=== PATIENT | female | born 1950 | race Caucasian/White ===

== ENCOUNTER → 2017-02-19 | Day surgery (SDC) | payer BC ==
[2017-01-30 10:44] VITALS: Ht 165.1 cm; Wt 89.1 kg
[~2017-02-19] VITALS: Ht 165.1 cm; Wt 89.1 kg
[~2017-02-19] MED LIST: ACET1TAB84 PO; ALBU1AER9 INH; AMLO-114 PO; APIX1TAB3 PO; ASPCH81 PO; ASPI-390 PO; CHOL100010 PO; DIPH25CA65 PO; IRBE-39 PO; LIDOCAINE HCL 1% MPF 5 ML VIAL ONE; LXP/20 PO; METH10TA6 PO; MGN PO; MULT-506 PO; OMEG10007 PO; PSYL55.43 PO; SIMV40TA2 PO; SODIUM CHLORIDE 0.9% INJ 10 ML VIAL ONE; TRAM-10 PO
--- NOTE | 2017-02-19 13:28 | History & Physical Bridge - [place] ---
H&P Re-Evaluation Bridge Note: I have examined the patient, reviewed the History & Physical and in the interval since the performance of the History & Physical I have noted the following changes of clinical significance: No changes noted
[2017-02-19 13:50] VITALS: TEMP 36.7
--- NOTE | 2017-02-19 13:52 | Discharge Instructions ---
Discharge Instructions Date of Service February 19, 2017. Visit Reason for Visit: Lumbar Radiculopathy Discharge Discharge Diagnosis / Problem: leg pain Discharge Goals Goal(s): Decrease discomfort, Improve function Activity Recommendations Activity Limitations: resume your previous activity Anesthesia . Post Anesthesia Instructions: If you have had General Anesthesia or IV Sedation: * Do not drive today. * Resume driving when surgeon permits. * Do not make important decisions or sign legal documents today. * Call surgeon for: 1. Temperature elevations greater than 101 degrees F. 2. Uncontrollable pain. 3. Excessive bleeding. 4. Persistent nausea and vomiting. 5. Medication intolerance (nausea, vomiting or rash). * For nausea and vomiting use only clear liquids such as: tea, soda, bouillon until nausea subsides, then gradually increase diet as tolerated. * If you have any concerns or questions, call your surgeon's office. If physician is unavailable and it is an emergency, call 911 or go to the nearest emergency room. . Diet Recommendations Recommended Home Diet: resume previous diet Procedures Procedures Performed: Caudal Epidural Steroid Injection Pending Studies Studies pending at discharge: no Medical Emergencies . Who to Call and When: Medical Emergencies: If at any time you feel your situation is an emergency, please call 911 immediately. . Non-Emergent Contact Non-Emergency issues call your: Specialist . . "Provider Documentation" section prepared by Kendall Adame. .
[2017-02-19 14:01] VITALS: BP 143/77; PULSE 70; O2SAT 96
--- NOTE | 2017-02-19 15:15 | OPERATIVE REPORT ---
DATE OF OPERATION: 02/19/2017 PREOPERATIVE DIAGNOSIS: Lumbar spinal stenosis with history of a bilateral left greater than right radiculopathy and prior lumbar surgery. POSTOPERATIVE DIAGNOSIS: Same. INDICATIONS: The patient is a 66-year-old white female who has had prior back surgery with persistent radicular pain. She has responded favorably to caudal epidural injection done 7 months ago with good relief of radicular pain; however, has returned and is problematic to her. She presents today for a caudal epidural steroid injection to provide her with relief of radicular complaints. PHYSICAL EXAMINATION: Pleasant female seated comfortably. Point tenderness to palpation on the left side, positive straight leg raise on the left lower extremity, decreased subjective sensation in the L4 dermatomal distribution. CONSENT: Verbal and written consent was obtained from the patient. Risks and benefits were reviewed. Risks include but are not limited to epidural abscess, epidural hematoma, allergic reaction. The patient wishes to proceed. PROCEDURE: The patient was taken back to the special procedures room of the [facility] where she was maintained in a prone position. Backside was cleansed with Betadine x3 and a dry sterile dressing was applied. Fluoroscope was used to identify the sacral hiatus and the overlying skin was anesthetized with 5 mL of lidocaine 1% with a 25 gauge 1.5-inch needle. A 25 gauge 3.5 inch spinal needle was then directed under lateral fluoroscopic guidance into the canal. She then underwent injection after negative aspiration of 4 mL of preservative free sodium chloride and 40 mg of Depo-Medrol. Injection was well tolerated. DISPOSITION: 1. The patient is taken out into the discharge recovery area where she will be discharged home once discharge criteria have been met. 2. Follow up in the [facility] office in 2-4 weeks. I attest to the content of the Intraoperative Record and any orders documented therein. Any exceptio ns are noted below.
== END | disposition home or self-care (01) ==
LOC: X.SURG 12:43
PROVIDERS: ATTEND Physical Medicine & Rehabilitation
DX: M48.06 Spinal stenosis, lumbar region (principal); M54.16 Radiculopathy, lumbar region; E05.90 Thyrotoxicosis, unspecified without thyrotoxic crisis or storm

== ENCOUNTER → 2017-02-19 | Outpatient (CLI) | payer BC ==
[~2017-02-19] MED LIST changes: -LIDOCAINE HCL 1% MPF 5 ML VIAL ONE; -SODIUM CHLORIDE 0.9% INJ 10 ML VIAL ONE
[2017-02-19 16:08] LABS: THYROID STIMULATING HORMONE 0.76 uIu/ml (0.300-4.500)
== END | disposition home or self-care (01) ==
LOC: C.LAB1850 14:14
PROVIDERS: ATTEND Physician Assistant
DX: E05.90 Thyrotoxicosis, unspecified without thyrotoxic crisis or storm (principal)

== ENCOUNTER → 2017-04-02 | Day surgery (SDC) | payer BC ==
[2017-03-28 11:22] VITALS: Ht 165.1 cm; Wt 89.1 kg
[~2017-04-02] VITALS: Ht 165.1 cm; Wt 89.1 kg
[~2017-04-02] MED LIST changes: +BUPIVACAINE 0.25% 2.5MG/ML PF 10 ML VIAL ONE; +IOPAMIDOL INJ 61% 15 ML VIAL ONE; +LIDOCAINE HCL 1% MPF 5 ML VIAL ONE; +SODIUM CHLORIDE 0.9% INJ 10 ML VIAL ONE; -TRAM-10 PO
[2017-04-02 14:38] VITALS: TEMP 37.2
--- NOTE | 2017-04-02 16:02 | Discharge Instructions ---
Discharge Instructions Date of Service Apr 02, 2017. Visit Reason for Visit: Sacroiliitis Discharge Discharge Diagnosis / Problem: left sacroilitis Discharge Goals Goal(s): Decrease discomfort, Improve function Activity Recommendations Activity Limitations: resume your previous activity Anesthesia . Post Anesthesia Instructions: If you have had General Anesthesia or IV Sedation: * Do not drive today. * Resume driving when surgeon permits. * Do not make important decisions or sign legal documents today. * Call surgeon for: 1. Temperature elevations greater than 101 degrees F. 2. Uncontrollable pain. 3. Excessive bleeding. 4. Persistent nausea and vomiting. 5. Medication intolerance (nausea, vomiting or rash). * For nausea and vomiting use only clear liquids such as: tea, soda, bouillon until nausea subsides, then gradually increase diet as tolerated. * If you have any concerns or questions, call your surgeon's office. If physician is unavailable and it is an emergency, call 911 or go to the nearest emergency room. . Diet Recommendations Recommended Home Diet: resume previous diet Procedures Procedures Performed: Left Sacroiliac Steroid Injection Pending Studies Studies pending at discharge: no Medical Emergencies . Who to Call and When: Medical Emergencies: If at any time you feel your situation is an emergency, please call 911 immediately. . Non-Emergent Contact Non-Emergency issues call your: Specialist . . "Provider Documentation" section prepared by Kendall Adame. .
[2017-04-02 16:06] VITALS: BP 131/72; PULSE 71; O2SAT 96
--- NOTE | 2017-04-02 16:29 | [facility] Operative Report ---
Operative Report Date of Service Apr 02, 2017. Operative Report DICTATED BY: Kendall Adame M.D. DATE OF SURGERY: 04/02/17. DATE OF OPERATION: 04/02/2017. PREOPERATIVE DIAGNOSIS: Left sacroiliitis, history of fusion. POSTOPERATIVE DIAGNOSIS: Same. PROCEDURE: Left SI joint injection under fluoroscopic guidance. SURGEON: Dr. Kendall Adame. INDICATIONS: The patient is a 66-year-old white female who last underwent bilateral SI joint injections in August in which she had 50% improvement. She has had some increasing pain over the last month and presents today for left SI joint injection to provide her with relief. PHYSICAL EXAMINATION: Pleasant female seated comfortably. She has point tenderness to palpation over her SI joints bilaterally. Sciatic notches are nontender, slight increase with extension. No problems with flexion. She has normal lower extremity strength. Positive modified Samantha maneuver. Negative seated straight leg raises. CONSENT: Verbal and written consent was obtained from the patient. Risks and benefits were reviewed. Risks include but are not limited to abscess and allergic reaction. She wishes to proceed. PROCEDURE: The patient was taken back to the special procedures room of [facility]. She was maintained in a prone position. Backside was cleansed with Betadine x3 and a dry sterile dressing was applied. Fluoroscope was used to identify the left SI joint. The overlying skin was anesthetized with 2 mL of lidocaine 1% with a 25 gauge 1.5-inch needle. A 25 gauge 3.5 inch spinal needle was then directed into the joint. There was a give as it entered the joint. Isovue-300 contrast 0.25 mL was injected in which demonstrated intraarticular uptake pattern. She then underwent injection after negative aspiration of 40 mg of Depo-Medrol and 1.5 mL of bupivacaine 0.25%. DISPOSITION: 1. The patient is taken out into the discharge recovery area where she will be discharged home once discharge criteria have been met. 2. Follow up in the [facility] office in 2-4 weeks. I attest to the content of the Intraoperative Record and any orders documented therein. Any exceptions are noted below. I attest to the content of the Intraoperative Record and any orders documented therein. Any exceptions are noted below.
== END | disposition home or self-care (01) ==
LOC: X.SURG 14:21
PROVIDERS: ATTEND Physical Medicine & Rehabilitation
DX: M46.1 Sacroiliitis, not elsewhere classified (principal); M54.16 Radiculopathy, lumbar region; Z98.1 Arthrodesis status

== ENCOUNTER → 2017-05-01 | Outpatient (CLI) | payer BC ==
[~2017-05-01] MED LIST changes: -BUPIVACAINE 0.25% 2.5MG/ML PF 10 ML VIAL ONE; -IOPAMIDOL INJ 61% 15 ML VIAL ONE; -LIDOCAINE HCL 1% MPF 5 ML VIAL ONE; -SODIUM CHLORIDE 0.9% INJ 10 ML VIAL ONE
[2017-05-01 17:16] LABS: ALT/SGPT 25 U/L (12-78); BLOOD UREA NITROGEN 12 mg/dl (7-18); BUN/CREATININE RATIO 16.7 (10-20); CALCIUM 9.7 mg/dl (8.5-10.1); CARBON DIOXIDE 29 mmol/L (21-32); CHLORIDE 105 mmol/L (98-107); CREATININE 0.72 mg/dl (0.60-1.20); GLUCOSE 81 mg/dl (70-99); POTASSIUM 3.8 mmol/L (3.5-5.1); SODIUM 140 mmol/L (136-145)
[2017-05-01 17:19] LABS: ALB/GLOB RATIO 1.1 (0.9-2); ALKALINE PHOSPHATASE 68 U/L (45-117); AST/SGOT 16 U/L (15-37); CHOLESTEROL 229 mg/dl (0-200); CHOLESTEROL/HDL RATIO 2.9; HDL CHOLESTEROL 80 mg/dl; LDL CHOLESTEROL CALCULATED 106 mg/dl; TRIGLYCERIDES 217 mg/dl (0-150); VERY LOW DENSITY LIPOPROT CALC 43 mg/dl
[2017-05-01 17:24] LABS: THYROID STIMULATING HORMONE 1.62 uIu/ml (0.300-4.500)
== END | disposition home or self-care (01) ==
LOC: C.LAB1850 15:42
PROVIDERS: ATTEND Physician Assistant
DX: E78.5 Hyperlipidemia, unspecified (principal); E55.9 Vitamin D deficiency, unspecified; E05.90 Thyrotoxicosis, unspecified without thyrotoxic crisis or storm

== ENCOUNTER → 2017-08-13 | Outpatient (CLI) | payer BC ==
--- NOTE | 2017-08-15 08:12 | MAMMOGRAPHY REPORT ---
BILATERAL DIGITAL SCREENING MAMMOGRAM TOMOSYNTHESIS WITH CAD: 08/13/2017 CLINICAL HISTORY: Patient scheduled for annual screening mammography. During her appointment she repo rted a new lump in the left upper outer quadrant. TECHNIQUE: Bilateral breast tomosynthesis in addition to standard 2D mammography was performed. Curre nt study was also evaluated with a Computer Aided Detection (CAD) system. COMPARISON: Comparison is made to exams dated: 08/07/2016 mammogram, 08/04/2015 mammogram, 4 mammogram, 07/28/2013 mammogram, 07/27/2012 mammogram, and 07/26/2011 mammogram - [facility]. BREAST COMPOSITION: There are scattered areas of fibroglandular density in both breasts. FINDINGS: A triangular skin palpable marker was placed on the skin of the the left upper outer quadr ant, denoting the area of palpable mass pointed out by the patient. There is no evidence of a new suspicious mass, asymmetry, area of distortion or cluster of microcalci fications bilaterally, with particular attention to the area of palpable concern in the left upper ou ter quadrant. However, standard of care for any new palpable finding is mammography plus ultrasound and therefore additional targeted ultrasound is recommended in the left breast. There are scattered stable benign-appearing coarse calcifications bilaterally. IMPRESSION: ACR BI-RADS CATEGORY 0: INCOMPLETE EVALUATION: NEED ADDITIONAL IMAGING EVALUATION Stable bilateral mammograms, without definite mammographic evidence of malignancy. However, the debby ent reports a new palpable lump in the left upper outer quadrant, for which additional targeted ultra sound is recommended. The patient will be called to schedule an appointment. Approximately 10% of breast cancers are not detected with mammography. A negative mammographic report should not delay biopsy if a clinically suggestive mass is present. Shobha Castro M.D. ay/:08/13/2017 16:06:28 Certified Orthotic Fitter: Luci Dueñas, [facility] letter sent: Addl Imaging 0 BI-RADS Code: ACR BI-RADS Category 0: Incomplete Evaluation: Need Additional Imaging Evaluation
== END | disposition home or self-care (01) ==
LOC: C.MAMM 15:04
PROVIDERS: ATTEND Nurse Practitioner Family
DX: Z12.31 Encounter for screening mammogram for malignant neoplasm of breast (principal)

== ENCOUNTER → 2017-08-29 | Outpatient (CLI) | payer BC ==
[~2017-08-29] MED LIST changes: +ALBU18002 INH; +ASPI81TA28 PO; +CHOL1000 PO; +MAGN400T6 PO; +PSYL48.59 PO
--- NOTE | 2017-09-01 07:49 | MAMMOGRAPHY REPORT ---
ULTRASOUND OF LEFT BREAST: 08/29/2017 CLINICAL HISTORY: The patient reported a lumpy region in her left breast at the time of her screening mammogram. Further evaluation with ultrasound was recommended. COMPARISON: Comparison is made to exams dated: 08/13/2017 mammogram, 08/07/2016 mammogram, 5 mammogram, 08/03/2014 mammogram, 07/28/2013 mammogram, and 07/27/2012 mammogram - [facility]. TECHNIQUE: Real-time targeted ultrasound was performed of the left breast. FINDINGS: Real-time, high resolution targeted ultrasound was performed of the lumpy region in the le ft breast pointed out by the patient. She could not pinpoint the exact location of the lumps but poi nted to the general region in the left upper outer quadrant. Sonographically normal tissue is seen i n this region, without evidence of a mass or other suspicious sonographic abnormality. IMPRESSION: ACR BI-RADS CATEGORY 1: NEGATIVE No suspicious sonographic abnormality at the site of the lumpiness in the left breast pointed out by the patient. There is no sonographic evidence of malignancy. Recommend clinical follow-up for the p alpable findings, and recommend routine bilateral screening mammograms in one year. The patient was verbally notified of the results. Mellissa Fontanez M.D. /:08/29/2017 14:15:16 Weapons Designer: Luci ESPOSITO(R)(M), [facility] letter sent: Normal 1/2 BI-RADS Code: ACR BI-RADS Category 1: Negative
== END | disposition home or self-care (01) ==
LOC: C.MAMM 13:58
PROVIDERS: ATTEND Internal Medicine
DX: N63.20 Unspecified lump in the left breast, unspecified quadrant (principal)

== ENCOUNTER → 2017-09-25 | Day surgery (SDC) | payer BC ==
[2017-09-02 11:48] VITALS: Ht 165.1 cm; Wt 90.9 kg
[~2017-09-25] VITALS: Ht 165.1 cm; Wt 90.9 kg
[~2017-09-25] MED LIST changes: -ALBU1AER9 INH; -ASPCH81 PO; -ASPI-390 PO; +BUPIVACAINE 0.25% 2.5MG/ML PF 10 ML VIAL ONE; -CHOL100010 PO; +IOPAMIDOL INJ 61% 15 ML VIAL ONE; +LIDOCAINE HCL 1% MPF 5 ML VIAL ONE; -MGN PO; -PSYL55.43 PO
[2017-09-25 15:09] VITALS: BP 125/80; PULSE 77; TEMP 37; O2SAT 95
--- NOTE | 2017-09-25 15:13 | Discharge Instructions ---
Discharge Instructions Date of Service Sep 25, 2017. Visit Reason for Visit: Sacroiliitis Discharge Discharge Diagnosis / Problem: low back pain Discharge Goals Goal(s): Decrease discomfort, Improve function Activity Recommendations Activity Limitations: resume your previous activity Anesthesia . Post Anesthesia Instructions: If you have had General Anesthesia or IV Sedation: * Do not drive today. * Resume driving when surgeon permits. * Do not make important decisions or sign legal documents today. * Call surgeon for: 1. Temperature elevations greater than 101 degrees F. 2. Uncontrollable pain. 3. Excessive bleeding. 4. Persistent nausea and vomiting. 5. Medication intolerance (nausea, vomiting or rash). * For nausea and vomiting use only clear liquids such as: tea, soda, bouillon until nausea subsides, then gradually increase diet as tolerated. * If you have any concerns or questions, call your surgeon's office. If physician is unavailable and it is an emergency, call 911 or go to the nearest emergency room. . Diet Recommendations Recommended Home Diet: resume previous diet Procedures Procedures Performed: Left Sacroiliac Joint Injection Pending Studies Studies pending at discharge: no Medical Emergencies . Who to Call and When: Medical Emergencies: If at any time you feel your situation is an emergency, please call 911 immediately. . Non-Emergent Contact Non-Emergency issues call your: Specialist . . "Provider Documentation" section prepared by Kendall Adame. .
--- NOTE | 2017-09-25 15:49 | OPERATIVE REPORT ---
DATE OF OPERATION: 09/25/2017 PREOPERATIVE DIAGNOSIS: Left sacroiliitis. POSTOPERATIVE DIAGNOSIS: Same. PROCEDURE: Left sacroiliac joint injection under fluoroscopic guidance. SURGEON: Dr. Kendall Adame. INDICATIONS: The patient is a 67-year-old white female who presents today for a left SI joint injection for chronic sacroiliac pain. The last injection she received was in the third week of March. Pain has been returning since that time as she responds very favorably to the injections. She presents today for an injection to provide her with relief. PHYSICAL EXAMINATION: Pleasant female seated comfortably. She has some point tenderness to palpation of the left SI joint, worse with extension. She has normal lower extremity strength. Negative seated straight leg raises. CONSENT: Verbal and written consent was obtained from the patient. Risks and benefits were reviewed. Risks include but are not limited to abscess and allergic reaction. The patient wishes to proceed. PROCEDURE: The patient was taken back in the special procedures room of the [facility] where she was maintained in a prone position. Backside was cleansed with Betadine x3 and a dry sterile dressing was applied. Fluoroscope was used to identify the left SI joint. The overlying skin was anesthetized with 2.5 mL of lidocaine 1% with a 25 gauge 1.5-inch needle. A 25 gauge 3.5 inch needle was then used to enter the joint. Isovue-300 contrast 0.25 mL was injected in which showed intra-articular placement. She then underwent injection after negative aspiration of 40 mg of Depo-Medrol and 1.5 mL of bupivacaine 0.25%. Injection was well tolerated. DISPOSITION: 1. The patient is taken out into the discharge recovery area where she will be discharged home once discharge criteria have been met. 2. Follow up in the [facility] office in 4 weeks' time. I attest to the content of the Intraoperative Record and any orders documented therein. Any exception s are noted below.
== END | disposition home or self-care (01) ==
LOC: X.SURG 14:15
PROVIDERS: ATTEND Physical Medicine & Rehabilitation
DX: M46.1 Sacroiliitis, not elsewhere classified (principal)

== ENCOUNTER → 2017-10-20 | Outpatient (CLI) | payer BC ==
[~2017-10-20] MED LIST changes: -BUPIVACAINE 0.25% 2.5MG/ML PF 10 ML VIAL ONE; -IOPAMIDOL INJ 61% 15 ML VIAL ONE; -LIDOCAINE HCL 1% MPF 5 ML VIAL ONE
[2017-10-20 17:35] LABS: ALBUMIN 3.9 gm/dl (3.4-5.0); ALT/SGPT 25 U/L (12-78); BLOOD UREA NITROGEN 11 mg/dl (7-18); CALCIUM 9.7 mg/dl (8.5-10.1); CARBON DIOXIDE 28 mmol/L (21-32); CREATININE 0.64 mg/dl (0.60-1.20); GLUCOSE 85 mg/dl (70-99); POTASSIUM 4.3 mmol/L (3.5-5.1); SODIUM 138 mmol/L (136-145)
[2017-10-20 17:45] LABS: ALKALINE PHOSPHATASE 66 U/L (45-117); AST/SGOT 16 U/L (15-37); TOTAL PROTEIN 7.4 gm/dl (6.4-8.2)
== END | disposition home or self-care (01) ==
LOC: C.LAB1850 16:16
PROVIDERS: ATTEND Internal Medicine
DX: E05.90 Thyrotoxicosis, unspecified without thyrotoxic crisis or storm (principal); I10 Essential (primary) hypertension

== ENCOUNTER → 2018-01-28 | Day surgery (SDC) | payer BC ==
[2018-01-16 15:34] VITALS: Ht 165.1 cm; Wt 90.9 kg
[~2018-01-28] VITALS: Ht 165.1 cm; Wt 90.9 kg
[~2018-01-28] MED LIST changes: -ASPI81TA28 PO; +LACTATED RINGER'S 1000ML 1,000 ML IV SCH; +LIDOCAINE HCL 1% 20 ML VIAL ONE
== END | disposition home or self-care (01) ==
LOC: X.SURG 09:08
PROVIDERS: ATTEND Physical Medicine & Rehabilitation
DX: M46.1 Sacroiliitis, not elsewhere classified (principal); M40.50 Lordosis, unspecified, site unspecified

== ENCOUNTER → 2018-04-29 | Day surgery (SDC) | payer BC ==
[2018-04-28 11:18] VITALS: Ht 165.1 cm; Wt 86.4 kg
[~2018-04-29] VITALS: Ht 165.1 cm; Wt 86.4 kg
[~2018-04-29] MED LIST changes: -AMLO-114 PO; +AMLO10TA3 PO; +ATROPINE SULFATE 0.1 MG/ML 5ML SYR IV PRN; +EpHEDrine SULFATE INJ 50 MG/ML AMP IV PRN; +FENTANYL CITRATE INJ 50 MCG/1 ML 2 ML VIAL IV PRN; +FENTANYL CITRATE INJ 50 MCG/1 ML 2 ML VIAL ONE; +LIDOCAINE HCL 2% 2 ML VIAL (20MG/ML) ONE; +MIDAZOLAM HCL 1 MG/ML 2ML VIAL ONE; +ONDANSETRON INJ 2 MG/ML 2 ML VIAL IV PRN; +ONDANSETRON INJ 2 MG/ML 2 ML VIAL ONE; +PHENYLEPHRINE HCL INJ 10 MG/ML VIAL ONE; +PROPOFOL IV EMULSION 10 MG/ML 20 ML VIAL ONE
--- NOTE | 2018-04-29 08:01 | History and Physical: Surg Cnt ---
History & Physical Date Apr 29, 2018. Chief Complaint Low back pain History of Present Illness Patient is a 67 year old white female who responds favorably to SI joint injections. She presents today for a left SI joint denervation to provide longer lasting pain relief. Additional History Hepatic Disease: No Endocrine Disorder: No Kidney Disease: No Hypertension: Yes Heart Disease: No Bleeding Tendencies: Yes Allergies Coded Allergies: No Known Allergies (Unverified , NONE, 04/29/18) Home Medications Scheduled Amlodipine (Norvasc), 10 MG PO QPM Apixaban (Eliquis), 1 TAB PO HS Cholecalciferol (Vitamin D3), 3 TABS PO QAM Escitalopram Oxalate (Escitalopram Oxalate), 1 TAB PO QAM Fish Oil ([place]-3), 1 CAP PO QAM Irbesartan (Avapro), 1 TAB PO HS Magnesium Oxide (Mag-Ox), 400 MG PO QAM Methimazole (Methimazole), 10 MG PO QAM Multivitamin (Multivitamin), 1 TAB PO QAM Simvastatin (Zocor), 40 MG PO HS Scheduled PRN Acetaminophen (Tylenol Arthritis Ext Rel), 2 TABS PO Q8H PRN for Pain Albuterol Sulfate (Proair Respiclick), 2 PUFFS INH Q4H PRN for SOB/Wheezing Diphenhydramine Hcl (Benadryl Allergy), 1 CAP PO Q4-6H PRN for ALLERGIES Psyllium (Metamucil), 1 DOSE PO DAILY PRN for Constipation Social History Smoking Status: Current Every Day Smoker Diagnosis Left sacroilitis ASA Classification: ASA Class II Operation Left sacroilitis
--- NOTE | 2018-04-29 09:06 | [facility] Post Operative Brief Note ---
Immediate Operative Summary Operative Date Apr 29, 2018. Pre-Operative Diagnosis Sacroilliitis, Lordosis Lumbar Region Post-Operative Diagnosis same Procedure(s) Performed Left Sacroiliac Cooled Radio Frequency Joint Denervation Surgeon Dr. Dominique Adame [place] Machinist Surgeon(s) 0 Estimated Blood Loss 0 Findings Consistent with Post-Op Diagnosis Specimens none Anesthesia Type MAC Complication(s) none Disposition Disposition:
--- NOTE | 2018-04-29 09:07 | Discharge Instructions ---
Discharge Instructions Date of Service Apr 29, 2018. Visit Reason for Visit: Sacroiliitis, Lordosis Lumbar Region Discharge Discharge Diagnosis / Problem: low back pain Discharge Goals Goal(s): Decrease discomfort, Improve function Activity Recommendations Activity Limitations: resume your previous activity Anesthesia . Post Anesthesia Instructions: If you have had General Anesthesia or IV Sedation: * Do not drive today. * Resume driving when surgeon permits. * Do not make important decisions or sign legal documents today. * Call surgeon for: 1. Temperature elevations greater than 101 degrees F. 2. Uncontrollable pain. 3. Excessive bleeding. 4. Persistent nausea and vomiting. 5. Medication intolerance (nausea, vomiting or rash). * For nausea and vomiting use only clear liquids such as: tea, soda, bouillon until nausea subsides, then gradually increase diet as tolerated. * If you have any concerns or questions, call your surgeon's office. If physician is unavailable and it is an emergency, call 911 or go to the nearest emergency room. . Diet Recommendations Recommended Home Diet: resume previous diet Procedures Procedures Performed: Left Sacroiliac Cooled Radio Frequency Joint Denervation Pending Studies Studies pending at discharge: no Medical Emergencies . Who to Call and When: Medical Emergencies: If at any time you feel your situation is an emergency, please call 911 immediately. . Non-Emergent Contact Non-Emergency issues call your: Specialist . . "Provider Documentation" section prepared by Kendall Adame. .
[2018-04-29 09:12] VITALS: TEMP 36.5
--- NOTE | 2018-04-29 09:33 | Anesthesia Progress Nt - [facility] ---
Anesthesia Post Op Note Date & Time Apr 29, 2018 at 09:34 Vital Signs Pain Intensity: 0 Vital Signs Past 12 Hours Date Time Temp Pulse Resp B/P (MAP) Pulse Ox O2 Delivery O2 Flow Rate FiO2 04/29/18 09:12 36.5 68 14 96/59 (71) 96 Room Air 04/29/18 07:37 36.8 72 20 142/82 (102) 96 Room Air Notes Mental Status: alert / awake / arousable, participated in evaluation Pt Amnestic to Procedure: Yes Nausea / Vomiting: adequately controlled Pain: adequately controlled Airway Patency, RR, SpO2: stable & adequate BP & HR: stable & adequate Hydration State: stable & adequate Anesthetic Complications: no major complications apparent
[2018-04-29 09:35] VITALS: BP 126/73; PULSE 70; O2SAT 96
--- NOTE | 2018-04-29 10:24 | OPERATIVE REPORT ---
DATE OF OPERATION: 04/29/2018 PREOPERATIVE DIAGNOSIS: Left sacroiliitis, underlying scoliosis. POSTOPERATIVE DIAGNOSIS: Left sacroiliitis, underlying scoliosis. PROCEDURE: Left cooled radiofrequency denervation under conscious sedation. HISTORY OF PRESENT ILLNESS: The patient is a 67-year-old white female who has done well with SI joint injections in the past; however, they do not provide more than 2-3 months of solid relief. Decision is made to do a denervation to provide her closer to 10 months to a year of relief. PHYSICAL EXAMINATION: She is with point tenderness to palpation of left SI joint, worse with twisting and extension. No focal weakness. Negative seated straight leg raises. Positive modified Samantha maneuver. CONSENT: Verbal and written consent was obtained from the patient. Risks and benefits were reviewed. Risks include, but are not limited to abscess, allergic reaction, and nerve denervation. She wishes to proceed. PROCEDURE IN DETAIL: The patient was taken back to OR #1. She was under conscious sedation. The backside was cleansed with Betadine x3 and a dry sterile dressing was placed. She was anesthetized in the overlying sacral area on the left side with 5 mL of Lidocaine 1% and the denervation needle was placed contacting 8 separate spots, left sacral ala, left superior lateral S1 foraminal area, the left S1 lateral foraminal area, the left inferior lateral S1 foraminal area, the superior lateral S2 foraminal area, the lateral S2 foraminal area, the inferior lateral S2 area, and the superior lateral S3 area. All underwent denervation 2 minutes and 30 seconds, well tolerated. DISPOSITION: She is taken out into the discharge recovery area where she will be discharged home once discharge criteria have been met. I attest to the content of the Intraoperative Record and any orders documented therein. Any exception s are noted below.
== END | disposition home or self-care (01) ==
LOC: X.SURG 07:09
PROVIDERS: ATTEND Physical Medicine & Rehabilitation
DX: M46.1 Sacroiliitis, not elsewhere classified (principal); M41.9 Scoliosis, unspecified; I10 Essential (primary) hypertension; J45.909 Unspecified asthma, uncomplicated; J44.9 Chronic obstructive pulmonary disease, unspecified; I48.91 Unspecified atrial fibrillation; Z79.899 Other long term (current) drug therapy; Z79.01 Long term (current) use of anticoagulants; F17.200 Nicotine dependence, unspecified, uncomplicated; M19.90 Unspecified osteoarthritis, unspecified site

== ENCOUNTER 2019-04-15 12:54 | Observation (INO) ==
[2019-04-15] MEDS ORDERED: ASPIRIN CHEW 324 MG PO STA (13:30)
[2019-04-15 13:40] LABS: Basophils # (auto) 0.04 K/uL (0-0.2); Basophils % (auto) 0.5 %; Eosinophils # (auto) 0.31 K/uL (0-0.5); Eosinophils % (auto) 3.9 %; Hematocrit (blood only) 41.6 % (37-47); Hemoglobin 14.2 g/dL (12.0-16.0); Immature Granulocytes # (auto) 0.01 K/uL (0.00-0.02); Immature Granulocytes % (auto) 0.1 %; Lymphocytes # (auto) 3.12 K/uL (1.2-3.4); Mean Corpuscular Hgb Conc 34.1 g/dL (32-36); Mean Corpuscular Volume 91.2 fL (80-100); Mean Platelet Volume 9.3 fL (7.4-10.4); Monocytes # (auto) 0.89 K/uL (0.11-0.59); Monocytes % (auto) 11.1 %; Neutrophils # (auto) 3.63 K/uL (1.4-6.5); Neutrophils % (auto) 45.4 %; Platelet Count 262 K/uL (130-400); RDW Coefficient of Variation 13.4 % (11.5-14.5); RDW Standard Deviation 44.3 fL (36.4-46.3); Red Blood Count 4.56 M/uL (4.2-5.4)
[2019-04-15 13:47] LABS: Alanine Aminotransferase 21 U/L (12-78); Albumin Level 3.9 gm/dl (3.4-5.0); Aspartate Aminotransferase 15 U/L (15-37); BUN Creatinine Ratio 11.4 (10-20); Bilirubin Direct 0.1 mg/dl (0-0.2); Blood Urea Nitrogen 7 mg/dl (7-18); Calcium 8.9 mg/dl (8.5-10.1); Carbon Dioxide 28 mmol/L (21-32); Chloride 106 mmol/L (98-107); Creatinine Clr Calc Pharmacy 87.7 ml/min; Est GFR (African American) 105.3; Est GFR (Non-African American) 90.9; Glucose 86 mg/dl (70-99); Potassium 3.8 mmol/L (3.5-5.1); Sodium 139 mmol/L (136-145)
[2019-04-15 13:52] LABS: Alkaline Phosphatase 79 U/L (45-117); Bilirubin,Total 0.6 mg/dl (0.2-1); Troponin I < 0.015 ng/ml (0-0.045)
--- NOTE | 2019-04-15 14:12 | XRay Report ---
XR chest 2V routine CLINICAL HISTORY: Chest Pain pain COMPARISON STUDY: 08/18/2014 FINDINGS: The bones soft tissues and hemidiaphragms are normal. The cardiomediastinal silhouette is n ormal. The lungs are clear. The pulmonary vasculature is normal. IMPRESSION: Negative chest. The above report was generated using voice recognition software. It may contain grammatical, syntax or spelling errors. Electronically signed by: Peyman Orozco M.D. 04/15/2019 2:11 PM
[2019-04-15] MEDS ORDERED: NITROGLYCERIN SL 0.4 MG/TAB TAB SL PRN ×2 (14:18→15:47)
--- NOTE | 2019-04-15 14:47 | History & Physical Report ---
Date of Service April 15, 2019 Assessment & Plan (1) Chest pain: And shortness of breath at rest and with exertion. Some atypical features, some typical. Continue aspirin therapy. Observation with telemetry. Serial troponins and EKGs. Cardiac echo. Cardiology consultation Present on Admission?: Yes (2) Atrial fibrillation: Paroxysmal. Currently in normal sinus rhythm. Continue Eliquis therapy Present on Admission?: Yes (3) Hypertension: Treated with ARB and amlodipine Present on Admission?: Yes (4) Hyperlipidemia: Continue statin therapy. Check lipid profile Present on Admission?: Yes (5) DVT prophylaxis: On Eliquis History of Present Illness Chief Complaint: Chest pain at rest Primary Care Provider: Camilla Eaton MD 68-year-old female with a history of paroxysmal atrial fibrillation on Eliquis. She has no history of ischemic cardiomyopathy. She has developed chest discomfort and shortness of breath while at rest that radiates to the left arm associated with diaphoresis and shortness of breath. However, she describes the pain as more sharp than dull in nature and seems to actually improve with deep inspiration. It is not palpable. She denies palpitations. She came to the ED today for evaluation and was given sublingual nitroglycerin in route by EMS with resolution of her symptoms. She currently is pain-free. Initial EKG reveals normal sinus rhythm with PACs and nonspecific ST segment changes. Initial troponin is normal. Chest x-ray is clear. She is placed in observation status for further evaluation. She has been given aspirin which will continue. Allergies Allergy/AdvReac Type Severity Reaction Status Date / Time No Known Allergies Allergy Unknown NONE Unverified 04/15/19 13:38 Home Medications Home Medications Medication Instructions Recorded Confirmed Type amlodipine [Norvasc] 10 mg PO QAM #0 10/06/09 04/15/19 History simvastatin [Zocor] 40 mg PO HS #0 10/06/09 04/15/19 History escitalopram oxalate 20 mg PO QAM #0 04/14/15 04/15/19 History irbesartan [Avapro] 300 mg PO PM #0 04/14/15 04/15/19 History methimazole 10 mg PO QAM #0 04/14/15 04/15/19 History multivitamin 1 tab PO QAM #0 tab 04/14/15 04/15/19 History omega 3-heq-glo-fish oil [Fish Oil] 1 cap PO QAM #0 cap 04/14/15 04/15/19 History apixaban 7.5 mg PO HS #0 08/31/15 04/15/19 History acetaminophen 500 mg PO Q6H PRN #0 01/30/17 04/15/19 History albuterol sulfate [ProAir HFA] 2 puff INHALATION Q4H PRN #0 09/02/17 04/15/19 History cholecalciferol (vitamin D3) 3,000 unit PO QAM #0 09/02/17 04/15/19 History [Vitamin D3] psyllium 1 tsp PO DAILY PRN #0 09/02/17 04/15/19 History calcium carbonate 600 mg (1,500 2 tab PO QAM tab 03/23/19 04/15/19 History mg)-vitamin D3 200 unit tablet Past Med/Surg History Medical History Vitamin D deficiency (Acute) Tiredness (Acute) Postmenopausal atrophic vaginitis (Acute) Palpitations (Acute) Nicotine dependence (Acute) Mitral valve disease (Acute) Low back pain (Acute) Hyperthyroidism (Acute) Hypertension (Acute) Hyperlipidemia (Acute) Graves disease (Acute) Gait disturbance (Acute) Depression (Acute) Atrial fibrillation (Acute) Anxiety (Acute) Allergic rhinitis (Acute) Social History Feels Safe at Home: Yes Smoking Status: Current every day smoker Review of Systems Review of Systems: Constitutional-no fever or chills ENT-no blurred vision, no double vision, no epistaxis, no sore throat Respiratory-no cough, no wheezing. Shortness of breath with exertion and with chest discomfort Cardiac-no palpitations, no syncope. Chest discomfort as described above GI-no nausea, vomiting, diarrhea, melena, hematochezia -no urinary retention, no urinary incontinence, no dysuria, no hematuria Musculoskeletal-no joint pain, no muscle tenderness Skin-no bruising, no rashes, no pruritus Neuro-no isolated weakness, no paresthesia, no weakness Psych-no depression, no anxiety Physical Exam Physical Exam: General-alert and oriented x3, no fevers, no chills HEENT-head atraumatic and normocephalic, TMs intact bilaterally, pupils equal and reactive to light, extraocular muscles intact Neck-no lymphadenopathy or thyromegaly, trachea midline Chest-adventitious breath sounds. No rales wheezing or rhonchi. No inspiratory rales Cardiac-regular rate and rhythm, normal S1 and S2, no JVD. Occasional premature beat Abdomen-normal bowel sounds, nontender, no hepatosplenomegaly Extremities-no cyanosis, clubbing, or edema Neuro-cranial nerves II through XII intact, motor and sensory function within normal limits, strength symmetrical 5/5, no focal deficits Psych-normal affect, normal mood Results & Data Vital Signs (Past 12 Hours) Vital Signs Temp Pulse Pulse Resp BP BP Pulse Ox 04/15/19 14:37 72 20 125/76 94 04/15/19 13:52 75 21 124/59 L 95 04/15/19 13:29 98 04/15/19 13:00 80 20 124/59 L 96 04/15/19 12:55 36.7 C 75 13 120/72 94 Laboratory Results 04/15/19 13:05 04/15/19 13:05 PG Care Time/CCT Total # of Minutes Spent Total Time Spent with Patient: Total time spent is greater than 50% in coordination of care (as documented) at patient's floor/unit and/or counseling patient: (1) Chest pain Chest pain type: unspecified Qualified Code(s): R07.9 - Chest pain, unspecified
[2019-04-15] MEDS ORDERED: ONDANSETRON INJ 2 MG/ML 2 ML VIAL IV PRN (15:47)
[2019-04-15] MEDS ORDERED: ALBUTEROL HFA 8 GM INHALER INH PRN (15:47)
[2019-04-15] MEDS ORDERED: ALUMINUM/MAGNESIUM SUSP 30 ML UDC PO PRN (15:47)
[2019-04-15] MEDS ORDERED: MoRPHine SULFATE 2 MG/ML CARP IV PRN (15:47)
[2019-04-15] MEDS ORDERED: PSYLLIUM 58.6% POWDER PACKET PO PRN (15:47)
[2019-04-15] MEDS: ACETAMINOPHEN 500 MG TAB PO PRN (16:06)
--- NOTE | 2019-04-15 19:43 | Emergency Department Note ---
Entered by Geni Schwartz acting as a scribe for Frank Moore History of Present Illness General Chief complaint: Chest Pain Stated complaint: chest pain Time Seen by Provider: 04/15/19 13:24 Source: patient History of Present Illness Onset (ago): hour(s) (several) Location: chest (center) Radiation: other (left chest ) Pain Consistency: + other (persistent ) Maximum Pain Intensity: 4 Associated symptoms: + nausea/vomiting (positive nausea; negative vomiting ), + shortness of breath and + other (negative diarrhea; negative blood in stool; ne gative blood in urine) The patient is a 68 year old female who presents to the Emergency Room with complaints of persistent center chest pain that began several hours prior to arrival. The patient states that this pain radiates to the left side of her chest. She reports shortness of breath. The patient states that she has been nauseous during this time, but denies vomiting and diarrhea. The patient denies blood in her stool and urine. She states that she has been taking all of her medications. Home Medications Home Medications Medication Instructions Recorded Confirmed Type amlodipine [Norvasc] 10 mg PO QAM #0 10/06/09 04/15/19 History simvastatin [Zocor] 40 mg PO HS #0 10/06/09 04/15/19 History escitalopram oxalate 20 mg PO QAM #0 04/14/15 04/15/19 History irbesartan [Avapro] 300 mg PO PM #0 04/14/15 04/15/19 History methimazole 10 mg PO QAM #0 04/14/15 04/15/19 History multivitamin 1 tab PO QAM #0 tab 04/14/15 04/15/19 History omega 6-nys-qct-fish oil [Fish Oil] 1 cap PO QAM #0 cap 04/14/15 04/15/19 History apixaban 7.5 mg PO HS #0 08/31/15 04/15/19 History acetaminophen 500 mg PO Q6H PRN #0 01/30/17 04/15/19 History albuterol sulfate [ProAir HFA] 2 puff INHALATION Q4H PRN #0 09/02/17 04/15/19 History cholecalciferol (vitamin D3) 3,000 unit PO QAM #0 09/02/17 04/15/19 History [Vitamin D3] psyllium 1 tsp PO DAILY PRN #0 09/02/17 04/15/19 History calcium carbonate 600 mg (1,500 2 tab PO QAM tab 03/23/19 04/15/19 History mg)-vitamin D3 200 unit tablet Allergies Allergy/AdvReac Type Severity Reaction Status Date / Time nicotine AdvReac Intermediate Rash - Verified 04/15/19 16:00 from patch Past Med/Surg History Medical History Vitamin D deficiency (Acute) Tiredness (Acute) Postmenopausal atrophic vaginitis (Acute) Palpitations (Acute) Nicotine dependence (Acute) Mitral valve disease (Acute) Low back pain (Acute) Hyperthyroidism (Acute) Hypertension (Acute) Hyperlipidemia (Acute) Graves disease (Acute) Gait disturbance (Acute) Depression (Acute) Atrial fibrillation (Acute) Anxiety (Acute) Allergic rhinitis (Acute) Social History Preferred Language: Vietnamese Communication Ability: Effective Emergency Technician Required: No Beliefs That Will Affect Care: None Current Living Situation: Alone Other Information That Helps Us Care for You: No Feels Safe at Home: Yes Safety Concerns: Afraid for Self Smoking Status: Current every day smoker Tobacco Type: cigarettes Cigarettes Per Day: 1 pack every 2 days Do You Dip or Chew Tobacco: No Second Hand Exposure: No Tobacco Cessation Education Requested by Patient: No Hx Alcohol Use: No Hx Substance Use: No Review of Systems See HPI for pertinent positives & negatives. and A total of 10 systems reviewed and were otherwise negative Physical Exam Vital Signs Vital Signs - 24 hr 04/15/19 12:55 04/15/19 13:00 04/15/19 13:29 Temperature 36.7 C Temperature Source Oral Sepsis Recent Fever Within 48 Hours No Sepsis New/Unexplained Change in Mental Status No Sepsis Action Taken by Nursing No Action Required Pulse Rate 75 Pulse Rate [Left Finger] 80 Respiratory Rate 13 20 Respiratory Effort / Characteristics Non-Labored Non-Labored Respiratory Depth Normal Normal Respiratory Pattern Regular Regular Blood Pressure 120/72 Blood Pressure [Left Arm] 124/59 L Blood Pressure Mean 88 Blood Pressure Mean [Left Arm] 80 Pulse Oximetry 94 96 98 Oxygen Delivery Method Room Air Room Air Room Air 04/15/19 13:52 04/15/19 14:37 Temperature Temperature Source Sepsis Recent Fever Within 48 Hours Sepsis New/Unexplained Change in Mental Status Sepsis Action Taken by Nursing Pulse Rate Pulse Rate [Left Finger] 75 72 Respiratory Rate 21 20 Respiratory Effort / Characteristics Non-Labored Non-Labored Respiratory Depth Normal Normal Respiratory Pattern Regular Regular Blood Pressure Blood Pressure [Left Arm] 124/59 L 125/76 Blood Pressure Mean Blood Pressure Mean [Left Arm] 80 92 Pulse Oximetry 95 94 Oxygen Delivery Method Room Air Room Air Physical Exam GENERAL: He is oriented to person, place, and time. He appears well-developed and well-nourished. He does not appear distressed. HENT: Exam performed. - Head: Normocephalic and atraumatic. - Right Ear: External ear normal. No mastoid tenderness. - Left Ear: External ear normal. No mastoid tenderness. - Mouth/Throat: The oropharynx is clear and moist. No trismus in the jaw. No dental abscesses or uvula swelling. No oropharyngeal exudate or tonsillar abscesses. EYES: Conjunctivae and EOM are normal. Pupils are equal, round, and reactive to light. Right eye exhibits no discharge. Left eye exhibits no discharge. No scleral icterus. NECK: Normal range of motion. Neck supple. No JVD present. No spinous process tenderness present. No carotid bruit present. No rigidity. No tracheal deviation and normal range of motion present. No Brudzinski's sign and no Kernig's sign noted. CV: Normal rate, regular rhythm, normal heart sounds and intact distal pulses. There is no peripheral edema. Palpable radial pulses bue. PULM/CHEST: Effort normal and breath sounds normal. No respiratory distress. No stridor. He has no wheezes. He has no rales. - Chest Wall: He exhibits no tenderness. ABD: The abdomen is soft. Bowel sounds are normal. He has no distension. No mass is present. There is no tenderness. There is no rebound, no guarding, no Salgado's sign and no tenderness at McBurney's point. Rovsig negative MUSC/SKEL: Normal range of motion. There is no peripheral edema, tenderness or deformity. LYMPH: No cervical adenopathy. NEURO: He is alert and oriented to person, place, and time. He has normal strength. No cranial nerve deficit or sensory deficit. Coordination and gait nor mal. GCS eye subscore is 4. GCS verbal subscore is 5. GCS motor subscore is 6. cerbellar tests wnl. SKIN: Skin is warm and dry. He is not diaphoretic. PSYCH: He has a normal mood and affect. His behavior is normal. Judgment and thought content normal. Course 1327: Past medical records reviewed. The patient was evaluated in room C6. A co mplete history and physical exam was performed. 1417: The patient's vital signs are stable. Her labs and imaging are within normal limits. The patient has a moderate heart score. I discussed possible possible further evaluation in the hospital for possible ACS, and the patient is agreeable to this plan. [facility] evaluation. Administered Medications Acetaminophen (Tylenol) 500 mg PO Q6H PRN PRN Reason: pain/fever Stop: 05/15/19 15:46 Last Admin: 04/15/19 16:06 Dose: 500 mg Documented by: [id number] Discontinued Medications Aspirin (Aspirin) 324 mg PO NOW STA Stop: 04/15/19 13:31 Last Admin: 04/15/19 13:44 Dose: Not Given Documented by: [id number] Medical Decision Making Medical Records Attestation: I reviewed the patient's medical records. Home Medications Current Medication List: was personally reviewed by me Laboratory Data Attestation: I reviewed the patient's lab results. Result diagrams: 04/15/19 13:05 04/15/19 13:05 Lab Results 04/15/19 04/15/19 04/15/19 Range/Units 13:05 13:05 13:05 WBC 8.00 (4.8-10.8) K/uL RBC 4.56 (4.2-5.4) M/uL Hgb 14.2 (12.0-16.0) g/dL Hct 41.6 (37-47) % MCV 91.2 (80-100) fL MCH 31.1 (25-34) pg MCHC 34.1 (32-36) g/dL RDW Std Deviation 44.3 (36.4-46.3) fL RDW Coeff of [place]urah 13.4 (11.5-14.5) % Plt Count 262 (130-400) K/uL MPV 9.3 (7.4-10.4) fL Immature Gran % (Auto) 0.1 % Neut % (Auto) 45.4 % Lymph % (Auto) 39.0 % [place] % (Auto) 11.1 % Eos % (Auto) 3.9 % Baso % (Auto) 0.5 % Immature Gran # (Auto) 0.01 (0.00-0.02) K/uL Neut # (Auto) 3.63 (1.4-6.5) K/uL Lymph # (Auto) 3.12 (1.2-3.4) K/uL [place] # (Auto) 0.89 H (0.11-0.59) K/uL Eos # (Auto) 0.31 (0-0.5) K/uL Baso # (Auto) 0.04 (0-0.2) K/uL Sodium 139 (136-145) mmol/L Potassium 3.8 (3.5-5.1) mmol/L Chloride 106 (98-107) mmol/L Carbon Dioxide 28 (21-32) mmol/L Anion Gap 5.0 (3-11) BUN 7 (7-18) mg/dl Creatinine 0.63 (0.6-1.2) mg/dl Est Cr Clr Drug Dosing 87.7 ml/min Est GFR ( Amer) 105.3 Est GFR (Non-Af Amer) 90.9 BUN/Creatinine Ratio 11.4 (10-20) Glucose 86 (70-99) mg/dl Calcium 8.9 (8.5-10.1) mg/dl Total Bilirubin 0.6 (0.2-1) mg/dl Direct Bilirubin 0.1 (0-0.2) mg/dl AST 15 (15-37) U/L ALT 21 (12-78) U/L Alkaline Phosphatase 79 (45-117) U/L Troponin I < 0.015 (0-0.045) ng/ml Total Protein 7.0 (6.4-8.2) gm/dl Albumin 3.9 (3.4-5.0) gm/dl Lipase 125 (73-393) U/L Free T4 1.17 (0.8-1.6) ng/dl Imaging Data Radiologist's Impression: Radiology results as stated below per my review and the radiologist's interpretation: XR chest 2V routine CLINICAL HISTORY: Chest Pain pain COMPARISON STUDY: 08/18/2014 FINDINGS: The bones soft tissues and hemidiaphragms are normal. The ca rdiomediastinal silhouette is normal. The lungs are clear. The pulmonary vasculature is normal. IMPRESSION: Negative chest. The above report was generated using voice recognition software. It may contain grammatical, syntax or spelling errors. Electronically signed by: Peyman Orozco M.D. 04/15/2019 2:11 PM ECG Data Attestation: I personally reviewed and interpreted this ECG as follows: Indication: chest pain Rate (beats per minute): 72 Rhythm: sinus with SA Findings: + other (CO, QRS, QTC intervals within normal limits) and + T-wave inversion (lead III and aVF); no ST depression and no ST elevation Blood Pressure Blood Pressure Findings: Normal blood pressure MDM Narrative The patient's vital signs are stable. Her labs and imaging are within normal limits. The patient has a moderate heart score. I discussed possible possible further evaluation in the hospital for possible ACS, and the patient is agreeable to this plan. I discussed the case with [facility] who accepts the patient for further evaluation. Impression & Plan Chest pain Discharge Plan Visit Data *Final* Discharge Date/Time: 04/15/19 15:17 Chief Complaint: Chest Pain Stated Complaint: chest pain ED Provider: Frank Moore Discharge Problem: Chest pain Patient Disposition: Admitted As Inpatient Discharge Instructions Interventions: ED Discharge Assessment Last Done: 04/15/19 15:17 Discharge Problem: Chest pain Qualifiers: Chest pain type: unspecified Qualified Code(s): R07.9 - Chest pain, unspecified The scribe's documentation has been prepared under my direction and personally reviewed by me in its entirety. I confirm that the note above accurately reflects all work, treatment, procedures, and medical decision making performed by me.
[2019-04-15] MEDS ORDERED: IRBESARTAN 150 MG TAB PO SCH (21:00)
[2019-04-15] MEDS ORDERED: SIMVASTATIN 40 MG TAB PO SCH (21:00)
[2019-04-15] MEDS: APIXABAN 5 MG TABLET PO SCH (21:02)
[2019-04-16] MEDS: ACETAMINOPHEN 500 MG TAB PO PRN (00:06)
[2019-04-16] MEDS ORDERED: SODIUM CHLORIDE 0.65% NA SOLN 45 ML (OCEAN) ONE (02:15)
[2019-04-16] MEDS ORDERED: SODIUM CHLORIDE 0.65% NA SOLN 45 ML (OCEAN) PRN (02:27)
[2019-04-16 04:36] LABS: Chol HDL Ratio 3; Cholesterol 169 mg/dl (0-200); HDL Cholesterol 64 mg/dl; LDL Cholesterol Calculated 73 mg/dl; Triglycerides 162 mg/dl (0-150); Troponin I < 0.015 ng/ml (0-0.045); VLDL Cholesterol 32 mg/dl
[2019-04-16] MEDS ORDERED: PERFLUTREN LIPID MICROSPHERE (DEFINITY) IV ONE (06:54)
[2019-04-16] MEDS: APIXABAN 5 MG TABLET PO SCH (07:48)
--- NOTE | 2019-04-16 08:34 | Family Medicine Progress Note ---
Date of Service April 16, 2019 Results & Data Vital Signs (Past 12 Hours) Vital Signs Temp Pulse Pulse Resp BP BP Pulse Ox 04/16/19 07:07 36.6 C 65 19 133/64 93 04/16/19 03:00 36.6 C 63 18 107/60 94 04/16/19 00:00 68 04/15/19 23:27 36.5 C 68 18 120/49 L 94 PG Care Time/CCT Total # of Minutes Spent Total Time Spent with Patient: Total time spent is greater than 50% in coordination of care (as documented) at patient's floor/unit and/or counseling patient:
--- NOTE | 2019-04-16 08:40 | Discharge Summary ---
Date of Service April 16, 2019 Admission HPI Per Admitting Provider 68-year-old female with a history of paroxysmal atrial fibrillation on Eliquis. She has no history of ischemic cardiomyopathy. She has developed chest discomfort and shortness of breath while at rest that radiates to the left arm associated with diaphoresis and shortness of breath. However, she describes the pain as more sharp than dull in nature and seems to actually improve with deep inspiration. It is not palpable. She denies palpitations. She came to the ED today for evaluation and was given sublingual nitroglycerin in route by EMS with resolution of her symptoms. She currently is pain-free. Initial EKG reveals normal sinus rhythm with PACs and nonspecific ST segment changes. Initial troponin is normal. Chest x-ray is clear. She is placed in observation status for further evaluation. She has been given aspirin which will continue. Admission Exam Per Admitting Provider General-alert and oriented x3, no fevers, no chills HEENT-head atraumatic and normocephalic, TMs intact bilaterally, pupils equal and reactive to light, extraocular muscles intact Neck-no lymphadenopathy or thyromegaly, trachea midline Chest-adventitious breath sounds. No rales wheezing or rhonchi. No inspiratory rales Cardiac-regular rate and rhythm, normal S1 and S2, no JVD. Occasional premature beat Abdomen-normal bowel sounds, nontender, no hepatosplenomegaly Extremities-no cyanosis, clubbing, or edema Neuro-cranial nerves II through XII intact, motor and sensory function within normal limits, strength symmetrical 5/5, no focal deficits Psych-normal affect, normal mood Principal Diagnosis Chest pain, paroxysmal A. fib Discharge Exam General: Obese female in no acute distress HEENT: Normocephalic atraumatic Neck:Normal visual inspection, trachea midline, negative JVD Cardiac: Regular rate and rhythm, normal S1, normal S2, did not appreciate any murmurs rubs or gallops, negative pedal edema, negative calf tenderness Respiratory: Clear to auscultation bilaterally GI: Soft, nontender not, nondistended normal bowel sounds MSK: Moves all extremities Skin: No new rashes Neuro: Alert and oriented x4 Psych: Cantankerous, mad that she did not get steadier with breakfast Discharge Data Allergies Allergy/AdvReac Type Severity Reaction Status Date / Time nicotine AdvReac Intermediate Rash - Verified 04/15/19 16:00 from patch Consultations 04/15/19 14:16 ED Decision to Admit Stat 04/15/19 15:47 Consult Cardiology Routine 04/15/19 17:06 Consult Case Management - Discharge Planning Routine Hospital Course (1) Chest pain: 68-year-old female with a history of paroxysmal atrial fibrillation on Eliquis. She has no history of ischemic cardiomyopathy. She has developed chest discomfort and shortness of breath while at rest that radiates to the left arm associated with diaphoresis and shortness of breath. However, she describes the pain as more sharp than dull in nature and seems to actually improve with deep inspiration. It is not palpable. She denies palpitations. She came to the ED today for evaluation and was given sublingual nitroglycerin in route by EMS with resolution of her symptoms. She currently is pain-free. Initial EKG reveals normal sinus rhythm with PACs and nonspecific ST segment changes. Initial troponin is normal. Chest x-ray is clear. She is placed in observation status for further evaluation. #Chest pain: With shortness of breath at rest and with exertion. Some atypical features, some typical. Patient was monitored overnight on observation in telemetry unit with no acute events. Patient's chest pain resolved with nitro, and she has not had a recurrence while hospitalized. She has had 2 normal EKGs, and negative troponins x4. On the morning of 04/16 she had a stress cardiac cardiogram which was normal did not show any significant akinesis, or evidence of myocardial ischemia. With no prior history of vascular disease of note, and the much more nebulous risk/benefit for primary prophylaxis, we will hold off on any antiplatelet at this time although she will have ongoing evaluation by her PCP in this regard #Atrial fibrillation: History of paroxysmal atrial fibrillation on Eliquis. No evidence of atrial fibrillation from EMS, on arrival to the hospital, or while hospitalized. She should continue Eliquis therapy on discharge #Hypertension: Continue angiotensin receptor jacquie and amlodipine, well-controlled throughout admission #Hyperlipidemia: Continue statin therapy. Lipid profile reasonable, triglycerides 162, cholesterol 169, LDL 73, HDL 64 #Somewhat atypical affect ?Dementia with depression versus psychosis Patient was bit cantankerous throughout the admission, intermittently rude towards staff, and physicians. Through evaluation of the patient it is unclear whether this was the beginning symptoms of dementia versus underlying psychiatric diagnosis. In fact it may be a combination of both. As we are only meeting you in the acute care setting, and no knowledge of your history it would be hard to further make this diagnosis. Inpatient psychiatric evaluation was deferred as it is not really appropriate for this patient's presentation. Inpatient psychiatric evaluation is mainly for people who are acutely suffering from severe psychiatric illness. Furthermore they would be unable to make a diagnosis given that they have not follow the patient over time. we recommend you follow-up with your primary care provider to further work-up this issue as they likely have the best relationship with the patient, and can identify the nuances between psychosis, other psychiatric syndromes, or early stages of dementia. -For example I went to question the patient about whether or not I could contact her children regarding her medical care. She stated no I do not have to that I said see you do not give me permission to do that she stated I did not say that. She denies directly asked her to have permission either yes or now and then she said yes then no. Unfortunately because they cannot get a straight answer out of her, I will be unable to contact her children regarding her care. Total Time Total Time Spent Total Time Spent (In Minutes): <30 Discharge Plan Discharge Items Patient Disposition: Home - Self-Care Reason For Visit: CHEST PAIN Discharge Diagnosis: Chest pain, paroxysmal A. fib Discharge Goals: Diagnostic testing and Therapeutic intervention Activity: Resume your previous activity Activity Comment: as tolerated Non-emergency contact: Primary Care Provider and Fire Protection Specialist Call non-emergency contact if: you have any medication questions, your symptoms worsen and your temperature is above 100.5 Follow-up/Referrals: Camilla Eaton MD [Primary Care Provider] - 04/22/19 11:30 am (Please, follow up at Dr. Pillai's office with her associate, Daxa THOMPSON, on April 22 at 11:30 am. *If you need to change this appointment, call the office at [phone].) Diet: Heart Healthy Addtl Provider Instructions: Care instructions: You were admitted to [facility] for treatment of chest pain and paroxysmal A. fib. Initially when he arrived to the ER EKG was obtained demonstrating normal sinus rhythm and no cardiac enzymes were obtained x4 and all were negative, you are monitored on telemetry overnight with no acute events. The following day you were given a stress echocardiogram which demonstrated no acute abnormalities, no evidence of ischemia, or other concerning signs or symptoms. While admitted it was noticed that were a little bit anxious, we recommend a follow-up with your primary care provider to further work-up this anxiety. A discharge summary will be sent to your primary care physician to ensure continuity of care. Please bring this discharge summary with you to your next office appointment so that your provider can review it at that time. Follow-up appointments: - Keep all your follow-up appointments as already scheduled. If you cannot make an appointment, notify your provider. - Please call to request a follow-up appointment with your primary care physician within one week of discharge. Please let us know if you are unable to obtain an appointment Medications: - Your medication list has been reviewed and reconciled upon discharge to ensure accuracy and continuity of care. - You are provided with a list of all your current medications at this time. Please review this list closely and make note of any changes. - Please take all of your medications exactly as prescribed. - Tell your primary care provider if you cannot afford your medications. - Call your primary care provider if you are having any side effects or any other problems. - Call your primary care provider before taking any over the counter medications or supplements, including herbals and vitamins, because some of these may interact with your current medications and/or make your symptoms worse. Symptoms: Please call your primary care provider for symptoms including, but not limited to: fevers (temperatures greater than 100.4), chills, intractable nausea or vomiting, diarrhea, rash, shortness of breath, bleeding, pain, or if you exp erience any worsening of the symptoms that brought you to the hospital. For EMERGENCY and VERY SERIOUS health-related issues, such as chest pain, shortness of breath, or sudden onset of the symptoms that brought you to the hospital, you may need to call 911 or go directly to the Emergency Room It has been our privilege to take care of you during your hospital stay. And Above All Else Feel Better! Best Wishes, Gregory Dominguez MD PGY1 Resident, Family & Community Medicine [facility] at [facility] [address] [facility], [address] : [address] [place] [address], [place] [address] Prescriptions: Continued simvastatin [Zocor] 40 mg Tablet 40 mg PO HS Qty: 0 RF: 0 amlodipine [Norvasc] 10 mg Tablet 10 mg PO QAM Qty: 0 RF: 0 multivitamin Tablet 1 tab PO QAM Qty: 0 RF: 0 methimazole 10 mg Tablet 10 mg PO QAM Qty: 0 RF: 0 irbesartan [Avapro] 300 mg Tablet 300 mg PO PM Qty: 0 RF: 0 escitalopram oxalate 20 mg Tablet 20 mg PO QAM Qty: 0 RF: 0 omega 0-trt-hsh-fish oil [Fish Oil] 1,000 mg (120 mg-180 mg) Capsule 1 cap PO QAM Qty: 0 RF: 0 apixaban 5 mg Tablet 7.5 mg PO HS Qty: 0 RF: 0 acetaminophen 500 mg Tablet 500 mg PO Q6H PRN (Reason: pain/fever) Qty: 0 RF: 0 psyllium Powder 1 tsp PO DAILY PRN (Reason: Constipation) Qty: 0 RF: 0 albuterol sulfate [ProAir HFA] 90 mcg/actuation Hfa Aerosol Inhaler 2 puff INHALATION Q4H PRN (Reason: sob/weezing) Qty: 0 RF: 0 cholecalciferol (vitamin D3) [Vitamin D3] 1,000 unit Tablet 3,000 unit PO QAM Qty: 0 RF: 0 calcium carbonate-vitamin D3 600 mg(1,500mg) -200 unit tablet 2 tab PO QAM RF: 0 Stand-Alone Forms: Call Back Authorization, [facility] Discharge Orders: Discharge Order (Routine); Ordered 04/16/19 Ordered By: Gregroy Dominguez Admission Data Admit Date/Time: 04/15/19 14:49 Attending Provider: Sammy Waddell Admit Provider: Georges Ruiz Primary Care Provider: Camilla Eaton V. Other Providers: Georges Ruiz Service: Telemetry Other Interventions: Discharge Summary Assessment (RN) Last Done: 04/16/19 14:31 Supervising Physician Co-Signing Physician Notes I personally examined the patient and verified all zelaya points of history and exam, discussed case, and agree with decision making with Dr Dominguez. Chest pain gone. Describes a degree of abdominal pain and indigestion, but also notes she has not had a bowel movement in 2 days. Asks for "plant fiber" then clarifies it to be Metamucil. Also would like to leave as quickly as possible. Tried to at least briefly give her a summary of her hospital stay and her negative cardiac work-up, although she was so inpatient to leave she was actively working on changing to go even as I was trying to discuss her situation with her. Vitals noted, in general she is in no distress. H EENT normocephalic atraumatic mucous membranes moist. Breathing unlabored no accessory muscle use, skin shows no rashes no pallor or icterus. Chest painby her description it seems to be most likely to have been musculoskeletal. Work-up was negative, stable for discharge to home. Given that she does not have coronary disease or cerebrovascular disease, will defer r isk-benefit of aspirin to her PCP. (Initially PGY 2 had aspirin written as part of the discharge medications, but after discussion of newer data on risk/benefit for primary prevention and review of recommendations based on the literature, this was removed from her med list, as risk/benefit is much more nebulous and would be better served in discussion with her PCP who knows her best) Constipationnotes that Metamucil helps. Okay to continue. Stable for home. Resident Activity Tracking Resident Involvement: Resident Care Provided Care Provided: Adult Hospital Medicine
[2019-04-16] MEDS ORDERED: AMLODIPINE BESYLATE 5 MG TAB PO SCH (09:00)
[2019-04-16] MEDS ORDERED: OMEGA-3 (PURIFIED FISH OIL) 1 GM CAP PO SCH (09:00)
[2019-04-16] MEDS ORDERED: CALCIUM 600MG + VIT D 400 IU TAB PO SCH (09:00)
[2019-04-16] MEDS ORDERED: ESCITALOPRAM OXALATE 20 MG TAB PO SCH (09:00)
[2019-04-16] MEDS ORDERED: MULTIVITAMIN TAB PO SCH (09:00)
[2019-04-16] MEDS ORDERED: CHOLECALCIFEROL 1,000 UNITS TAB PO SCH (09:00)
[2019-04-16] MEDS ORDERED: methIMAzole 5 MG TABLET PO SCH (09:00)
[2019-04-16] MEDS ORDERED: ASPIRIN 81 MG ECTAB PO SCH (09:00)
[2019-04-16] MEDS ORDERED: DOBUTamine HCL 12.5 MG/ML 20 ML VIAL IV ONE (11:11)
[2019-04-16] MEDS ORDERED: ATROPINE SULFATE 0.1 MG/ML 10ML SYR IV ONE (11:11)
[2019-04-16] MEDS ORDERED: METOPROLOL TARTRATE 1 MG/ML VIAL IV ONE (11:11)
== END 2019-04-16 17:25 | disposition home health service (06) ==
LOC: 2E 12:54 → ED 12:54 → SUATTDRO 14:49 → 2E 15:17